=== PATIENT | male | born 1940 | race Caucasian/White ===

== ENCOUNTER 2018-07-25 09:03 | Emergency (ER) | payer MEDICARE ==
--- NOTE | 2018-07-25 09:30 | EDM.PDOC ---
ED HPI GENERAL MEDICAL PROBLEM - General Chief Complaint: General Stated Complaint: BACK Time Seen by Provider: 07/25/18 09:26 - History of Present Illness INITIAL COMMENTS - FREE TEXT/NARRATIVE: pt slipperd on ice on sunday and since then he has right back pain, pt feels it when twisting his torso or coughing, denies any fever chills or SOB or any other associated sx or concerns. - Related Data Allergies Allergy/AdvReac Type Severity Reaction Status Date / Time No Known Allergies Allergy Verified 07/25/18 09:14 Home Meds: Home Meds Multivitamin [Daily Multiple Vitamin] 1 each PO DAILY 07/25/18 [History] Past Medical History - Past Health History Medical/Surgical History: Denies Medical/Surgical History ED ROS GENERAL - Review of Systems Review Of Systems: See Below Constitutional: Reports: No Symptoms Respiratory: Reports: No Symptoms Cardiovascular: Reports: No Symptoms GI/Abdominal: Reports: No Symptoms ED EXAM, GENERAL - Physical Exam Exam: See Below Free Text/Narrative:: pt has bruising and tendernsover the right lower ribs in the back, skin is intact, no tenderness on spine, spine has full ROM. Exam Limited By: No Limitations General Appearance: Alert, No Apparent Distress Respiratory/Chest: No Respiratory Distress Cardiovascular: Normal Peripheral Pulses, Regular Rate, Rhythm GI/Abdominal: Normal Bowel Sounds, Soft, Non-Tender Course - Vital Signs Text/Narrative:: xray shows no acute findings, supportive mng for contusion injury was recommended. Last Recorded V/S: Last Vital Signs Temp 36.4 C 07/25/18 09:05 Pulse 58 L 07/25/18 09:05 Resp 16 07/25/18 09:05 BP 150/78 H 07/25/18 09:05 Pulse Ox - Orders/Labs/Meds Orders: Active Orders 24 hr Category Date Time Status Ribs 2V w Chest Rt [CR] Stat Exams 07/25/18 09:30 Taken Departure - Departure Time of Disposition: 10:40 Disposition: Home, Self-Care 01 Clinical Impression: Rib contusion - Discharge Information *PRESCRIPTION DRUG MONITORING PROGRAM REVIEWED*: No *COPY OF PRESCRIPTION DRUG MONITORING REPORT IN PATIENT HUMBERTO: No Referrals: Mahesh Mcconnell MD [Primary Care Provider] - Forms: ED Department Discharge - Problem List & Annotations (1) Rib contusion SNOMED Code(s): 101574734 Code(s): S20.219A - CONTUSION OF UNSPECIFIED FRONT WALL OF THORAX, INIT ENCNTR Status: Acute Current Visit: Yes - Problem List Review Problem List Initiated/Reviewed/Updated: Yes - My Orders Last 24 Hours: My Active Orders 07/25/18 09:30 Ribs 2V w Chest Rt [CR] Stat - Assessment/Plan Last 24 Hours: My Active Orders 07/25/18 09:30 Ribs 2V w Chest Rt [CR] Stat
--- NOTE | 2018-07-25 12:51 | CR ---
INDICATION: Fell off skid steer last Sunday, rib pain on the right. RIGHT RIBS WITH CHEST: PA view of the chest with three views of the right ribs were obtained, 07/25/18, and revealed the heart to be enlarged. The aorta is tortuous with calcification in the arch. 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 No contusion, pneumothorax, infiltrate, or effusion was suggested. RIGHT RIBS: Three views of the right ribs revealed no evidence of a displaced rib fracture or other definite bony abnormality. IMPRESSION: 1. No acute process. 2. ASHD. Report was called to Dr. Vides at 1035 hours on 07/25/18. [facility]
== END 2018-07-25 11:10 | disposition home or self-care (01) ==
LOC: FB.ED 09:03
DX: S20.211A Contusion of right front wall of thorax, initial encounter (principal); Z79.899 Other long term (current) drug therapy; W00.0XXA Fall on same level due to ice and snow, initial encounter
CPT/HCPCS: 71101-RT; 99283-25

== ENCOUNTER 2018-12-24 07:09 | Day surgery (SDC) | payer MEDICARE ==
[2018-12-24] MEDS ORDERED: Propofol 200 MG/20 ML SDV IV ONE (07:10)
[2018-12-24] MEDS ORDERED: Lactated Ringers 1,000 ML IV SCH (07:15)
[2018-12-24] MEDS ORDERED: Sodium Chloride 0.9% 10 ML Syringe FLUSH PRN (07:15)
--- NOTE | 2018-12-24 09:01 | PCM.OPNOTE ---
- General Post-Op/Procedure Note Date of Surgery/Procedure: 12/24/18 Operative Procedure(s): c scope Findings: nl exam Pre Op Diagnosis: screening Post-Op Diagnosis: nl exam Anesthesia Technique: MAC Primary Surgeon: Alfred Avila Anesthesia Provider: Laney Glass Pathology: none Complications: None Condition: Good Free Text/Narrative:: see exam
--- NOTE | 2018-12-24 10:08 | OR ---
DATE OF OPERATION: 12/24/2018 SURGEON: Alfred Avila MD PROCEDURE PERFORMED: Colonoscopy. PREOPERATIVE DIAGNOSIS: Need for screening C scope. POSTOPERATIVE DIAGNOSIS: Normal exam. INDICATIONS FOR PROCEDURE: This is a 78-year-old white male who presents for screening colonoscopy. He was offered and accepted same. DESCRIPTION OF OPERATION: After an excellent IV sedation was administered, digital rectal exam was performed. No marked abnormality was noted. Flexible colonoscope was inserted and advanced to cecum. Prep was excellent. The following findings were noted. Ascending colon, unremarkable. Transverse colon, unremarkable. Descending colon, unremarkable. Sigmoid and rectum, unremarkable. Colon was deflated. Scope was removed. RECOMMENDATIONS: Repeat colonoscopy going forward on a p.r.n. basis. /[id number] /[id number]
== END 2018-12-24 09:52 | disposition home or self-care (01) ==
LOC: FB.SDS 07:09
PROVIDERS: ATTEND Surgery
DX: Z12.11 Encounter for screening for malignant neoplasm of colon (principal); I25.10 Atherosclerotic heart disease of native coronary artery without angina pectoris; Z79.82 Long term (current) use of aspirin; Z79.899 Other long term (current) drug therapy
CPT/HCPCS: 00812; G0121; J2704; J7120